=== PATIENT | female | born 1985 | race Caucasian/White ===

== ENCOUNTER 2019-08-28 17:55 | Emergency (ER) | payer OTHER ==
[2019-08-28] MEDS ORDERED: NA CHLORIDE 0.9% 1,000 ML ONE (19:16)
[2019-08-28] MEDS ORDERED: PROMETHAZINE INJ 25 MG/ML AMP ONE (19:16)
[2019-08-28 19:47] LABS: Absolute Lymphocytes (CBC) 1.7 K/uL (0.7-4.9); Basophils % 0.3 % (0-1.3); Hematocrit 36.5 % (36.0-45.0); Lymphocytes % 14.6 % (15.3-44.8); MPV 6.9 fL (7.6-11.3); RBC Red Blood Cell Count 3.79 M/uL (3.86-4.86)
[2019-08-28 19:51] LABS: BUN Blood Urea Nitrogen 7 mg/dL (7-18); Bicarbonate 24 mmol/L (21-32); Glucose Level 87 mg/dL (74-106); Potassium 3.3 mmol/L (3.5-5.1); Sodium Level 137 mmol/L (136-145)
--- NOTE | 2019-08-28 20:45 | EDPHYS ---
Physician Documentation [facility] Name: Carla Veras Age: 33 yrs Sex: Female : 1985 Arrival Date: 08/28/2019 Time: 17:58 Bed 23 Private MD: ED Physician Rory Montoya HPI: 08/27 19:18 This 33 yrs old Female presents to ER via Ambulatory with complaints of snw Abdominal Cramping, Vomiting. 19:18 The patient presents to the emergency department with nausea, vomiting, diarrhea, snw abdominal pain, of the left lower quadrant, described as crampy. Onset: The symptoms/episode began/occurred suddenly, today. Possible causes: bad food exposure, fish. Associated signs and symptoms: The patient has no apparent associated signs or symptoms. Severity of symptoms: At their worst the symptoms were moderate. It is unknown whether or not the patient has had similar symptoms in the past. It is unknown whether or not the patient has recently seen a physician. 13 weeks . 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 G5, P3. ll1 Historical: - Allergies: 18:08 No Known Allergies; ss - Home Meds: 18:08 None [Active]; ss - PMHx: 18:08 None; ss - PSHx: 18:08 None; ss - Immunization history:: Adult Immunizations up to date. - Social history:: Smoking status: Patient denies any tobacco usage or history of. ROS: 19:16 Constitutional: Negative for fever, chills, and weight loss, Eyes: Negative for injury, snw pain, redness, and discharge, ENT: Negative for injury, pain, and discharge, Neck: Negative for injury, pain, and swelling, Cardiovascular: Negative for chest pain, palpitations, and edema, Respiratory: Negative for shortness of breath, cough, wheezing, and pleuritic chest pain, Back: Negative for injury and pain, : Negative for injury, bleeding, discharge, and swelling, MS/Extremity: Negative for injury and deformity, Skin: Negative for injury, rash, and discoloration, Neuro: Negative for headache, weakness, numbness, tingling, and seizure, Psych: Negative for depression, anxiety, suicide ideation, homicidal ideation, and hallucinations. 19:16 Abdomen/GI: Positive for abdominal pain, nausea, vomiting, and diarrhea, today s/p eating fish that tastes "funny". Pt didn't eat any more but then started having N/V/D. Exam: 19:16 Constitutional: This is a well developed, well nourished patient who is awake, alert, snw and in no acute distress. Head/Face: Normocephalic, atraumatic. Eyes: Pupils equal round and reactive to light, extra-ocular motions intact. Lids and lashes normal. Conjunctiva and sclera are non-icteric and not injected. Cornea within normal limits. Periorbital areas with no swelling, redness, or edema. ENT: Nares patent. No nasal discharge, no septal abnormalities noted. Tympanic membranes are normal and external auditory canals are clear. Oropharynx with no redness, swelling, or masses, exudates, or evidence of obstruction, uvula midline. Mucous membranes moist. Neck: Trachea midline, no thyromegaly or masses palpated, and no cervical lymphadenopathy. Supple, full range of motion without nuchal rigidity, or vertebral point tenderness. No Meningismus. Chest/axilla: Normal chest wall appearance and motion. Nontender with no deformity. No lesions are appreciated. Cardiovascular: Regular rate and rhythm with a normal S1 and S2. No gallops, murmurs, or rubs. Normal PMI, no JVD. No pulse deficits. Respiratory: Lungs have equal breath sounds bilaterally, clear to auscultation and percussion. No rales, rhonchi or wheezes noted. No increased work of breathing, no retractions or nasal flaring. Back: No spinal tenderness. No costovertebral tenderness. Full range of motion. Skin: Warm, dry with normal turgor. Normal color with no rashes, no lesions, and no evidence of cellulitis. MS/ Extremity: Pulses equal, no cyanosis. Neurovascular intact. Full, normal range of motion. Neuro: Awake and alert, GCS 15, oriented to person, place, time, and situation. Cranial nerves II-XII grossly intact. Motor strength 5/5 in all extremities. Sensory grossly intact. Cerebellar exam normal. Normal gait. Psych: Awake, alert, with orientation to person, place and time. Behavior, mood, and affect are within normal limits. 19:16 Abdomen/GI: Inspection: abdomen appears normal, Bowel sounds: normal, Palpation: mild abdominal tenderness, in the left lower quadrant. Vital Signs: 18:07 BP 121 / 79; Pulse 111; Resp 16; Temp 98.8(TE); Pulse Ox 99% on R/A; Weight 62.6 kg; ss Height 4 ft. 11 in. (149.86 cm); Pain 4/10; 19:30 BP 121 / 82; Pulse 103; Resp 17; Pulse Ox 100% ; Pain 4/10; ll1 21:41 BP 108 / 74; Pulse 100; Resp 17; Temp 98.0; Pulse Ox 100% ; Pain 2/10; ll1 18:07 Body Mass Index 27.87 (62.60 kg, 149.86 cm) ss MDM: 18:49 Patient medically screened. snw 20:45 Data reviewed: vital signs, nurses notes. Data interpreted: Pulse oximetry: on room air snw is 100 %. Interpretation: normal. Counseling: I had a detailed discussion with the patient and/or guardian regarding: the historical points, exam findings, and any diagnostic results supporting the discharge/admit diagnosis, lab results, the need for outpatient follow up, to return to the emergency department if symptoms worsen or persist or if there are any questions or concerns that arise at home. Response to treatment: the patient's symptoms have markedly improved after treatment. Special discussion: Based on the patient's Hx, exam, and Dx evaluation, there is no indication for emergent surgery or inpatient Tx. It is understood by the patient/guardian that if the Sx's persist or worsen they need to return immediately for re-evaluation. Based on the history and exam findings, there is no indication for further emergent testing or inpatient evaluation. I discussed with the patient/guardian the need to see the OB Gyne specialist for further evaluation of the symptoms. I discussed with the patient/guardian the need to see the primary care provider for further evaluation of the symptoms. 08/27 18:27 Order name: Urine Culture snw 08/27 18:27 Order name: Urine Microscopic Only; Complete Time: 21:12 snw 08/27 19:00 Order name: CBC with Diff; Complete Time: 19:51 snw 08/27 19:00 Order name: Chem 7; Complete Time: 19:52 snw 08/27 20:20 Order name: Urine Dipstick--Ancillary (enter results); Complete Time: 20:57 mt 08/27 18:27 Order name: Urine Dipstick-Ancillary (obtain specimen); Complete Time: 20:02 snw Administered Medications: 19:19 Drug: NS 0.9% 1000 ml Route: IV; Rate: 1 bolus; Site: right antecubital; ll1 20:37 Follow up: Response: No adverse reaction; RASS: Alert and Calm (0); IV Status: ll1 Completed infusion 21:40 Follow up: Response: No adverse reaction; RASS: Alert and Calm (0); IV Status: ll1 Completed infusion 19:19 Drug: Phenergan 6.25 mg Route: IVP; Site: right antecubital; ll1 20:02 Follow up: Response: No adverse reaction; Nausea is decreased; RASS: Alert and Calm (0) ll1 21:40 Not Given (not available in [facility]): Tums 1 tablet PO once ll1 Disposition: 08/28 07:52 Co-signature as Attending Physician, Rory Montoya MD I agree with the assessment and rafaela plan of care. Disposition: 08/28/19 20:44 Discharged to Home. Impression: Vomiting, Diarrhea, unspecified. - Condition is Stable. - Discharge Instructions: Food Choices to Help Relieve Diarrhea, Adult, Diarrhea, Adult, Food Poisoning, Nausea and Vomiting, Adult, Rehydration, Adult. - Prescriptions for promethazine 25 mg Oral Tablet - take 1 tablet by ORAL route every 6 hours As needed; 20 tablet. - Medication Reconciliation Form, Thank You Letter, Antibiotic Education, Prescription Opioid Use, Work release form form. - Follow up: Emergency Department; When: As needed; Reason: Worsening of condition. Follow up: Private Physician; When: 2 - 3 days; Reason: Recheck today's complaints, Continuance of care, Re-evaluation by your physician. Signatures: Dispatcher [employer] Rory Shah MD MD cha Therrien, Shelly, VACUUM TECHNICIAN-C VACUUM TECHNICIAN-[place] Steve RN RN ss Lewis, Lynsay, RN RN ll1 Corrections: (The following items were deleted from the chart) 08/27 21:45 20:44 08/28/2019 20:44 Discharged to Home. Impression: Vomiting; Diarrhea, unspecified. ll1 Condition is Stable. Forms are Medication Reconciliation Form, Thank You Letter, Antibiotic Education, Prescription Opioid Use. Follow up: Emergency Department; When: As needed; Reason: Worsening of condition. Follow up: Private Physician; When: 2 - 3 days; Reason: Recheck today's complaints, Continuance of care, Re-evaluation by your physician. snw
--- NOTE | 2019-08-28 20:45 | ER ---
Nurse's Notes [facility] Name: Carla Veras Age: 33 yrs Sex: Female : 1985 Arrival Date: 08/28/2019 Time: 17:58 Bed 23 Private MD: Diagnosis: Vomiting;Diarrhea, unspecified Presentation: 08/27 18:07 Chief complaint: Patient states: abd cramping and N/V/D that began yesterday evening. ss Pt reports she is 13 weeks . Coronavirus screen: The patient has NOT traveled to a country currently being monitored by the [facility] within the last 14 days. Proceed with normal triage procedures. Ebola Screen: Patient denies exposure to infectious person. Patient denies travel to an Ebola-affected area in the 21 days before illness onset. Initial Sepsis Screen: Does the patient meet any 2 criteria? No. Patient's initial sepsis screen is negative. Does the patient have a suspected source of infection? No. Patient's initial sepsis screen is negative. Risk Assessment: Do you want to hurt yourself or someone else? Patient reports no desire to harm self or others. 18:07 Method Of Arrival: Ambulatory ss 18:07 Acuity: SONALI 3 ss 18:54 Onset of symptoms was August 28, 2019. 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 G5, P3. ll1 Historical: - Allergies: 18:08 No Known Allergies; ss - Home Meds: 18:08 None [Active]; ss - PMHx: 18:08 None; ss - PSHx: 18:08 None; ss - Immunization history:: Adult Immunizations up to date. - Social history:: Smoking status: Patient denies any tobacco usage or history of. Screenin:53 Abuse screen: Denies threats or abuse. Nutritional screening: No deficits noted. ll1 Tuberculosis screening: No symptoms or risk factors identified. Fall Risk IV access (20 points). Total Young Fall Scale indicates No Risk (0-24 pts). Assessment: 18:50 General: Appears in no apparent distress. Behavior is calm, cooperative, appropriate ll1 for age. Pain: Complains of pain in abdomen Pain currently is 4 out of 10 on a pain scale. Quality of pain is described as tender, Pain began after vomiting a lot. GI: Abdomen is round Bowel sounds present X 4 quads. Abd is soft X 4 quads Abdomen is tender to palpation X 4 quads. Reports cramping, diarrhea, nausea, vomiting, Patient currently denies. 19:55 Reassessment: Patient appears in no apparent distress at this time. No changes from ll1 previously documented assessment. Patient and/or family updated on plan of care and expected duration. Pain level reassessed. Patient is alert, oriented x 3, equal unlabored respirations, skin warm/dry/pink. Feeling better. 20:41 Reassessment: Patient appears in no apparent distress at this time. No changes from ll1 previously documented assessment. Patient and/or family updated on plan of care and expected duration. Pain level reassessed. Patient is alert, oriented x 3, equal unlabored respirations, skin warm/dry/pink. 21:41 Reassessment: Patient appears in no apparent distress at this time. No changes from ll1 previously documented assessment. Patient and/or family updated on plan of care and expected duration. Pain level reassessed. Patient is alert, oriented x 3, equal unlabored respirations, skin warm/dry/pink. PO challenge complete, no N/V. Vital Signs: 18:07 BP 121 / 79; Pulse 111; Resp 16; Temp 98.8(TE); Pulse Ox 99% on R/A; Weight 62.6 kg; Height 4 ft. 11 in. (149.86 cm); Pain 4/10; 19:30 BP 121 / 82; Pulse 103; Resp 17; Pulse Ox 100% ; Pain 4/10; ll1 21:41 BP 108 / 74; Pulse 100; Resp 17; Temp 98.0; Pulse Ox 100% ; Pain 2/10; ll1 18:07 Body Mass Index 27.87 (62.60 kg, 149.86 cm) ED Course: 17:58 Patient arrived in ED. rg4 18:08 Triage completed. ss 18:08 Arm band placed on right wrist. ss 18:12 Tomasa Tesfaye F[facility]-C [facility]. snw 18:12 Rory Montoya MD is Attending Physician. snw 18:48 Jose Antonio Ignacio RN is Primary Nurse. ll1 18:54 Patient has correct armband on for positive identification. Bed in low position. Call ll1 light in reach. Side rails up X2. 20:05 Inserted saline lock: 20 gauge in right antecubital area, using aseptic technique. ll1 Blood collected. 21:42 No provider procedures requiring assistance completed. IV discontinued, intact, ll1 bleeding controlled, No redness/swelling at site. Pressure dressing applied. Administered Medications: 19:19 Drug: NS 0.9% 1000 ml Route: IV; Rate: 1 bolus; Site: right antecubital; ll1 20:37 Follow up: Response: No adverse reaction; RASS: Alert and Calm (0); IV Status: ll1 Completed infusion 21:40 Follow up: Response: No adverse reaction; RASS: Alert and Calm (0); IV Status: ll1 Completed infusion 19:19 Drug: Phenergan 6.25 mg Route: IVP; Site: right antecubital; ll1 20:02 Follow up: Response: No adverse reaction; Nausea is decreased; RASS: Alert and Calm (0) ll1 21:40 Not Given (not available in [facility]): Tums 1 tablet PO once ll1 Outcome: 20:44 Discharge ordered by . kareem 21:43 Discharged to home ambulatory. ll1 21:43 Condition: improved 21:43 Discharge instructions given to patient, Instructed on discharge instructions, follow up and referral plans. medication usage, Demonstrated understanding of instructions, follow-up care, medications, Prescriptions given X 1. 21:45 Patient left the ED. 1 Signatures: Tomasa Tesfaye, FORK REPAIRER-C FORK REPAIRER-Julianw Socorro Carcamo RN RN ss Garcia, Rubi rg4 Lewis, Lynsay, RN RN 1
[2019-08-28 20:50] LABS: Urine Blood TRACE (NEG); Urine Glucose NEGATIVE (NEG); Urine Protein NEGATIVE (NEG)
[2019-08-28 21:03] LABS: Urine Bacteria <20 /HPF (<20); Urine Culture Reflex Order NOT NEEDED; Urine Mucus 1+ /HPF (NONE SEEN); Urine RBC <5 /HPF (NONE SEEN)
[2019-08-28 22:05] VITALS: O2SAT 100
[2019-08-28 22:07] VITALS: BP 108/74; TEMP 98
[2019-08-28] MEDS ORDERED: LIDOCAINE 1% MPF 2 ML AMPULE ONE (22:12)
[2019-08-28] MEDS ORDERED: CEFTRIAXONE 1000 MG/VIAL ONE (22:12)
== END 2019-08-28 21:45 | disposition home or self-care (01) ==
LOC: ER 17:55
DX: O26.891 Other specified pregnancy related conditions, first trimester (principal); R19.7 Diarrhea, unspecified
CPT/HCPCS: 96361; 87088; 85025; 87086; 80048; 36415; 96374; 99284; J2550; J2001; J7030; 81003; 81015

== ENCOUNTER 2020-02-13 23:40 | Inpatient (IN) | payer OTHER ==
[2020-02-14] MEDS ORDERED: CARBOPROST TROME 250 MCG/ML IM PRN (00:01)
[2020-02-14] MEDS ORDERED: MEPERIDINE HCL 25 MG/ML SYR IV PRN (00:01)
[2020-02-14] MEDS ORDERED: MIDAZOLAM HCL 2 MG/2 ML INJ IV PRN (00:01)
[2020-02-14] MEDS ORDERED: Ringers Lactate 1,000 ML IV PRN (00:01)
[2020-02-14] MEDS ORDERED: PROMETHAZINE INJ 25 MG/ML AMP IM PRN (00:01)
[2020-02-14] MEDS ORDERED: BUTORPHANOL 1 MG/ML INJ IV PRN (00:01)
[2020-02-14] MEDS ORDERED: METHYLERGONOVINE 0.2MG/ML AMP IM PRN (00:01)
[2020-02-14] MEDS ORDERED: ROPIVACAINE HCL 100 ML IV PRN (00:11)
[2020-02-14] MEDS ORDERED: FENTANYL CITR 100 MCG/2 ML IV ONE (00:11)
[2020-02-14] MEDS ORDERED: OXYTOCIN/LR 20 UNIT/1,000 ML BAG IV ONE (00:13)
[2020-02-14 00:23] VITALS: BMI 36.7
[2020-02-14 00:53] LABS: Absolute Lymphocytes (CBC) 1.6 K/uL (0.7-4.9); Basophils % 0.2 % (0-1.3); Hematocrit 30.8 % (36.0-45.0); MPV 7.5 fL (7.6-11.3); RBC Red Blood Cell Count 3.29 M/uL (3.86-4.86)
[2020-02-14] MEDS ORDERED: Ringers Lactate 1,000 ML IV SCH (01:00)
[2020-02-14] MEDS ORDERED: ROPIVACAINE HCL 2 MG/ML 100ML IV SCH (01:00)
[2020-02-14] MEDS ORDERED: OXYTOCIN/LR 20 UNIT/1,000 ML BAG IV SCH ×2 (01:00→06:00)
[2020-02-14 01:21] LABS: RPR (Rapid Plasma Reagin) NON-REACT (NON-REACT)
[2020-02-14] MEDS ORDERED: LIDOCAINE 1% MPF 30 ML VIAL ONE (04:55)
[2020-02-14] MEDS ORDERED: OXYTOCIN 10 UNIT/ML ML IV ONE (05:10)
[2020-02-14] MEDS ORDERED: DOCUSATE NA/SENNA CONC 1 TAB PO PRN (05:11)
[2020-02-14] MEDS ORDERED: DIPHENHYDRAMINE 25 MG TAB/CAP PO PRN (05:11)
[2020-02-14] MEDS ORDERED: IBUPROFEN 200 MG TAB PO PRN (05:11)
[2020-02-14] MEDS ORDERED: Oxycodone HCl/Acetaminophen 1 TAB TAB PO PRN (05:11)
[2020-02-14] MEDS ORDERED: BISACODYL 10 MG RECTAL SUPP PR PRN (05:11)
[2020-02-14] MEDS ORDERED: ACETAMINOPHEN 500 MG TAB PO PRN (05:11)
--- NOTE | 2020-02-14 08:06 | OP ---
Surgeon: Aleksandr Hallman MD Carla Veras is a 34-year-old 5, para 3, at 38 weeks gestation, followed antepartum , noted to be diabetic, was seen in consultation with Dr. Escobar, high-risk officer [facility], who recommended delivery at 38 weeks. It was noted in the latter part of the pregnan cy patient on ultrasound, baby had high S-D ratio and it was suggested to deliver. The patient's pre vious pregnancies were all small in the 6 pounds range and even 5 pounds range. The patient was 3 to 3.5 cm on admission, spontaneously ruptured membranes, had Stadol initially, then epidural anesthesi a. Second stage of approximately 20 to 25 minutes spontaneous vaginal delivery of an 8 pounds 9-ounc e female. Moderate shoulder dystocia, flexion of the legs and suprapubic pressure effected delivery. Apgars 7 and 9. Schultze delivery of the placenta was inspected and noted to be intact and normal. Mild to moderate uterine hypertonus, 0.2 mg of Methergine as well as Hemabate given, IV drip Pitoci n as well. Estimated blood loss 500 cc. The patient tolerated all procedures well as quite stable a t this point. Rh positive, immune to rubella, negative strep, negative COVID. Final Diagnoses: Intrauterine gestation 38 weeks. Diabetic. High risk consultation. Recommend del nic at 38 weeks. Spontaneous vaginal delivery. Mild to moderate shoulder dystocia. [id number]-yz-[id number] ate uterine hypertonus. Epidural anesthesia. GABRIELC/EMILYL Voice ID: [id number] Report ID: [id number]
[2020-02-14] MEDS: Oxycodone HCl/Acetaminophen 1 TAB TAB PO PRN ×2 (08:10→12:25)
--- NOTE | 2020-02-14 09:51 | PN ---
Carla Veras is patient. Lochia is normal at this point. She already walked without dizziness. Pulse is ranging from upper 60s to as high as 114, latest pulse is 102. We will keep the IV going until she is ambulated and her pulse comes down, but although her blood losses slightly mor e than normal, I do not think it was to the point where she is going to need blood, but we will ubaldo nue the IV until we will more sure of her status. Full talk given. We will go over again tomorrow. No post epidural problems. She has had her Tdap shot already during the . She is immune to rubella. KEM/YAJAIRA Voice ID: [id number] Report ID: [id number]
[2020-02-14] MEDS: METHYLERGONOVINE 0.2 MG TAB PO PRN ×3 (10:15→18:30)
--- NOTE | 2020-02-15 08:13 | DS ---
A 34-year-old 5, para 3, 38 weeks' gestation, insulin-dependent diabetic, seen in consultatio n with Dr. Escobar, high-senior risk manager, was delivered of an 8 pounds 9 ounces female, Apgars 7 and 9 , moderate shoulder dystocia, but with flexion of the legs and suprapubic pressure, delivery was affe cted. Baby has done quite well. Second-degree spontaneous laceration repaired with 2-0 chromic. Sc hultze delivery of the placenta. Qzzj-lw-eqocmtlw uterine hypotonus, corrected with IV drip Pitocin, massage, and Hemabate. Estimated blood loss 500 cc. Rh positive, immune to rubella. COVID negativ e. Strep negative. No post epidural problems. Ambulating, voiding. Lochia is normal. We will dis miss the patient to return to my office in 6 weeks for followup. To report any temperature elevation of 100 degrees or greater, severe pain, heavy bleeding, or any other type of abnormalities. Final Diagnoses: Intrauterine gestation, 38 weeks, insulin-dependent diabetic, epidural anesthesia, moderate shoulder dystocia, [id number] uterine hypotonus. NBC/MODL Voice ID: [id number] Report ID: [id number]
[2020-02-15 08:53] VITALS: BP 99/49; TEMP 98.6
[2020-02-19 04:50] LABS: HBsAG Nonreactive (Nonreactive)
== END 2020-02-15 10:30 | disposition home or self-care (01) | DRG 807 ==
LOC: 2ND-WC 23:40
PROVIDERS: ADMIT Specialist; ATTEND Specialist
PROC: 10E0XZZ Delivery of Products of Conception, External Approach (ICD-10-PCS; principal; 2020-02-14)
DX: O24.32 Unspecified pre-existing diabetes mellitus in childbirth (principal); Z37.0 Single live birth; O66.0 Obstructed labor due to shoulder dystocia; O62.4 Hypertonic, incoordinate, and prolonged uterine contractions; E11.9 Type 2 diabetes mellitus without complications; Z3A.38 38 weeks gestation of pregnancy; Z03.818 Encounter for observation for suspected exposure to other biological agents ruled out; Z79.4 Long term (current) use of insulin
CPT/HCPCS: 36415; 85025; 86592; 86901; 87340; 99218; J0595; J2210; J2550; J2590; J7120; U0003